=== PATIENT | male | born 1980 | race Caucasian/White ===

== ENCOUNTER 2017-03-22 17:58 | Emergency (ER) | payer SELFPAY ==
[2017-03-22 17:58] VITALS: BMI 22.3
[2017-03-22 18:02] VITALS: BP 136/93; PULSE 57; RESP 18; TEMP 97.4; O2SAT 100
[2017-03-22] MEDS ORDERED: Absorbable Gelatin Sponge Size 12-7 MM STA (18:13)
[2017-03-22] MEDS ORDERED: Absorbable Gelatin Sponge Size 12-7 ONE (18:18)
--- NOTE | 2017-03-22 18:26 | C.PDOC ---
History Of Present Illness 36 year old male presents to the ED with complaints of a sliced tip of right pinky after cutting vegetables. Patient states he is up to date with tetanus but denies any limit of movement or numbness. Time Seen by Provider: 03/22/17 18:11 Chief Complaint (Nursing): Abnormal Skin Integrity History Per: Patient History/Exam Limitations: no limitations Onset/Duration Of Symptoms: Hrs Current Symptoms Are (Timing): Still Present Recent travel outside of the [place]: No Past Medical History Reviewed: Historical Data, Nursing Documentation, Vital Signs Vital Signs: Last Vital Signs Temp 97.4 F L 03/22/17 18:02 Pulse 57 L 03/22/17 18:02 Resp 18 03/22/17 18:02 BP 136/93 H 03/22/17 18:02 Pulse Ox 100 03/22/17 18:57 - Medical History PMH: Fractures (Right ankle) Surgical History: Tonsillectomy - [facility] Procedures OP RED-INT FIX TIB/FIBUL (06/22/15) Family History: States: Unknown Family Hx - Social History Hx Alcohol Use: No Hx Substance Use: Yes Review Of Systems Constitutional: Negative for: Fever, Chills, Sweats Cardiovascular: Negative for: Chest Pain, Palpitations Respiratory: Negative for: Cough, Shortness of Breath Gastrointestinal: Negative for: Nausea, Vomiting, Abdominal Pain, Diarrhea Skin: Positive for: Other (cut to right pinky finger ) Physical Exam - Physical Exam Appears: Non-toxic, No Acute Distress Skin: Warm, Dry, Other (1 cm avulsion to right) Head: Atraumatic Oral Mucosa: Moist Neck: Supple Extremity: Normal ROM, No Tenderness, Other (1 cm avulsion to right 5th finger tip with some mild active bleeding ) Neurological/Psych: Oriented x3 ED Course And Treatment O2 Sat by Pulse Oximetry: 100 (room air ) Medical Decision Making Medical Decision Making: Avulsion area cleansed, irrigated with normal saline. Gel foam used and hemostasis was achieved and dressing applied. Disposition Counseled Patient/Family Regarding: Need For Followup - Disposition Disposition: HOME/ ROUTINE Disposition Time: 18:25 Condition: STABLE Additional Instructions: Gelfoam was applied to wound to stop bleeding and provide protective barrier. Do not remove, it will fall off in few days. Keep area clean and dry. May wash gently with soap and water, do not use alcohol or iodine solution. Change dressing 1-2 times daily. Return to ER if fever occurs, redness or swelling around wound, pus in the wound. Instructions: Skin Avulsion (ED) - POA Present On Arrival: None - Clinical Impression Clinical Impression: Avulsion of fingertip - Scribe Statement The provider has reviewed the documentation as recorded by the Chuyitaibloyd Myers All medical record entries made by the Miles were at my direction and personally dictated by me. I have reviewed the chart and agree that the record accurately reflects my personal performance of the history, physical exam, medical decision making, and the department course for this patient. I have also personally directed, reviewed, and agree with the discharge instructions and disposition.
== END 2017-03-22 18:39 | disposition home or self-care (01) ==
LOC: C.ER 17:58
DX: S61.206A Unspecified open wound of right little finger without damage to nail, initial encounter (principal); W26.0XXA Contact with knife, initial encounter; Y93.G1 Activity, food preparation and clean up; Y92.000 Kitchen of unspecified non-institutional (private) residence as the place of occurrence of the external cause